=== PATIENT | female | born 1950 | race Caucasian/White ===

== ENCOUNTER → 2018-05-30 | Outpatient (CLI) | payer BC, MEDICARE, OTHER ==
[~2018-05-30] MED LIST: ABILIFY 5 MG TAB5 M1 PO; ADVAIR HFA 1112 UNIT INH; AMPHETAMINE SAL10 MG PO; ATORVASTATIN CA40 MG PO; BUSPIRONE HCL10 MG PO; CLARINEX5 MG PO; CYMBALTA60 MG PO; ELMIRON 100 MG100 M1 PO; METFORMIN HCL500 MG PO; NEXIUM40 MG PO; NORCO 5-325 TA1 EACH PO; QUINU10 PD PO; RHINOCORT AQUA8.6 GM NS; SINGULAIR 10 MG10 M1 PO; WELLBUTRIN SR150 MG PO
== END ==
LOC: M.RAD 09:17
DX: Z12.31 Encounter for screening mammogram for malignant neoplasm of breast (principal)

== ENCOUNTER → 2018-08-23 | Outpatient (CLI) | payer BC, MEDICARE, OTHER | LOC: M.MRI 07:09 → M.RAD 08-31 13:00 → M.MRI 08-31 14:30 | DX: M19.012 Primary osteoarthritis, left shoulder (principal); M75.102 Unspecified rotator cuff tear or rupture of left shoulder, not specified as traumatic ==

== ENCOUNTER 2018-10-06 17:03 | Emergency (ER) | payer BC, MEDICARE, OTHER ==
[~2018-10-06] VITALS: Ht 162.6 cm; Wt 77.7 kg
[~2018-10-06 17:03] MED LIST changes: +ABILIFY MYCITE5 MG PO; +ACCUNEB SO1.25 MG/1 INH; +BREO ELLIPTA 21 EACH INH; +IRON325 PO; +LIPITOR80 MG PO; +PRESERVISION T1 EACH PO; +QUINAPRIL 20 MG20 MG PO; +RHINOCORT ALL8.43 ML INH; +UNICOMPLEX M TA1 TA1 PO; +VITAMIN D2000 UNIT PO; +WELLBUTRIN XL300 MG PO
[2018-10-06] MEDS ORDERED: METFORMIN HCL500 MG PO (17:44)
[2018-10-06] MEDS ORDERED: NORCO 5-325 TA1 EACH PO (17:44)
[2018-10-06] MEDS ORDERED: OXYCODON-ACETA1 EAC1 PO (18:39)
[2018-10-06 19:21] VITALS: BP 184/88
== END 2018-10-06 19:18 | disposition home or self-care (01) ==
LOC: M.ERS 17:03
DX: G89.18 Other acute postprocedural pain (principal); Z98.890 Other specified postprocedural states; I10 Essential (primary) hypertension; J45.909 Unspecified asthma, uncomplicated; E78.00 Pure hypercholesterolemia, unspecified; F32.9 Major depressive disorder, single episode, unspecified; Z90.710 Acquired absence of both cervix and uterus; Z91.012 Allergy to eggs

== ENCOUNTER 2019-05-07 12:07 | Inpatient (IN) | payer MEDICARE, BC, OTHER ==
[~2019-05-07] VITALS: Ht 149.9 cm; Wt 75.6 kg
[~2019-05-07 12:07] MED LIST changes: +CYMBALTA20 MG PO; +OXYCODON-ACETA1 EAC1 PO
[2019-05-07 12:10] VITALS: BP 144/65
[2019-05-07] MEDS ORDERED: MAGNESIUM BISG500 GM PO (12:20)
[2019-05-07] MEDS ORDERED: PROAIR HFA8.5 GM INH (12:20)
[2019-05-07] MEDS ORDERED: BREO ELLIPTA 21 EACH INH (12:21)
[2019-05-07] MEDS ORDERED: CRESTOR40 MG PO (12:22)
[2019-05-07] MEDS ORDERED: DITROPAN XL10 M1 PO (12:23)
[2019-05-07] MEDS ORDERED: CIPRO250 M2 PO (12:23)
[2019-05-07] MEDS ORDERED: VIIBRYD20 MG PO (12:23)
[2019-05-07] MEDS ORDERED: VITAMIN D1000 UNIT PO (12:23)
[2019-05-07 12:44] LABS: ABSOLUTE BASOPHILS 0.1 thou/uL (0.0-0.2); ABSOLUTE LYMPHOCYTES 2.1 thou/uL (0.8-5.3); ABSOLUTE MONOCYTES 0.5 thou/uL (0.0-1.2); BASOPHILS 1.1 %; EOSINOPHILS 0.7 %; HEMATOCRIT 31.8 % (37.0-47.0); HEMOGLOBIN 10.7 gm/dL (12.0-15.0); LYMPHOCYTES 31.4 %; MCH 31.9 pg (26.0-34.0); MCHC 33.8 g/dL (28.0-37.0); MCV 94.3 fL (80.0-100.0); MONOCYTES 7.7 %; MPV 7.4 fl. (7.2-11.1); NUCLEATED RBCS 0 /100WBC; PLATELET COUNT* 360 thou/uL (150-400); POLYS 59.1 %; RBC 3.37 mil/uL (4.20-5.00); RDW-CV 13.9 % (10.5-14.5); WBC 6.8 thou/uL (4.0-11.0)
[2019-05-07 12:53] LABS: CALCIUM 9.1 mg/dL (8.5-10.1); CREATININE 2.1 mg/dL (0.6-1.3); POTASSIUM 4.2 mmol/L (3.5-5.1)
[2019-05-07 12:54] LABS: PROTIME 9.8 Seconds (9.20-11.50)
[2019-05-07 13:03] LABS: ALBUMIN 3.5 g/dL (3.4-5.0); TOTAL BILIRUBIN 0.3 mg/dL (<0.1-1.0); TOTAL PROTEIN 7.2 g/dL (6.4-8.2)
--- NOTE | 2019-05-07 16:13 | NUR ---
DR. ENNIS CONSULTING WITH THE PATIENT AT THIS TIME.
[2019-05-07 17:17] VITALS: BP 114/59
--- NOTE | 2019-05-07 17:31 | EKG ---
[place] [address] ELECTROCARDIOGRAM REPORT Name: CYNTHIA SAMAYOA Room: [address] ADM IN .R.#: [id number] Admission: 05/07/19 Attend Phys: Jabier Chávez, Discharge: Date of : 52 Report #: [id number] THIS REPORT FOR: //name// [facility] ED Test Date: 2019-05-07 Test Time: 12:15:09 Pat Name: CYNTHIA SAMAYOA Department: Room: [facility] Gender: F Stable Cleaner: : 1950 Requested By: Jb Johns Order Number: [id number] MD: Tristan Ford Measurements Intervals [place] Rate: 104 P: 72 VA: 148 QRS: 3 QRSD: 86 T: 64 QT: 349 QTc: 459 Interpretive Statements Sinus tachycardia Baseline wander in lead(s) I,III,aVL Compared to ECG 05/13/2016 10:14:28 Sinus rhythm no longer present Electronically Signed On 05-07-2019 17:31:01 [employer] by Tristan Ford [email or web address] <ELECTRONICALLY SIGNED> By: Tristan Ford MD, FACC 05/07/19 1731 1215 1215 Tristan Ford MD, FAC /EPI
[2019-05-07 17:57] VITALS: BP 116/62
[2019-05-07 20:01] VITALS: BP 113/60
[2019-05-07 23:34] VITALS: BP 107/56
--- NOTE | 2019-05-08 00:24 | NUR ---
RECEIVED REPORT AND ASSUMED CARE AT 1900. VSS. CARDIAC MONITORING IN PLACE. ASSESSMENT COMPLETED CHARTED. PT UP AD FADUMO IN ROOM, ON RA. WEARS CPAP NOC, BROGHT FROM HOME. BED LOCKED IN LOWEST POSITION, CALL LIGHT WITHIN REACH. ORIENTATED TO ROOM, CALL LIGHT. DISCUSSED PLAN OF CARE, STRESS TEST 05/08/19. VERBALIZED UNDERSTANDING.
[2019-05-08 04:00] VITALS: BP 108/61
[2019-05-08 05:48] LABS: HEMATOCRIT 30.7 % (37.0-47.0); HEMOGLOBIN 10.1 gm/dL (12.0-15.0); MCH 31.6 pg (26.0-34.0); MCV 95.7 fL (80.0-100.0); MPV 7.5 fl. (7.2-11.1); RBC 3.21 mil/uL (4.20-5.00); WBC 7.1 thou/uL (4.0-11.0)
[2019-05-08 06:06] LABS: ANION GAP 6 mmol/L (7-16); BUN 30 mg/dL (7-18); CALCIUM 9.6 mg/dL (8.5-10.1); CHLORIDE 108 mmol/L (98-107); CO2 28 mmol/L (21-32); CREATININE 1.8 mg/dL (0.6-1.3); GLUCOSE 100 mg/dL (70-99); MAGNESIUM 2.3 mg/dL (1.8-2.4); POTASSIUM 4.6 mmol/L (3.5-5.1); SODIUM 142 mmol/L (136-145); TROPONIN-I LEVEL <0.06 ng/mL (<0.06)
--- NOTE | 2019-05-08 07:25 | NUR ---
CHANGE OF SHIFT, BEDSIDE REPORT GIVEN PATIENT SEEN AT BEDSIDE, IN BED ASLEEP ASSUMED PATIENT CARE PATIENT NPO FOR TESTING
[2019-05-08 08:00] VITALS: BP 128/68
--- NOTE | 2019-05-08 08:20 | CON ---
[address] [address] CONSULTATION Name: CYNTHIA SAMAYOA Room: [address] IN M.R.#: [id number] Admission: 05/07/19 Attend Phys: Jabier Chávez, Discharge: Date of : 52 Report #: [id number] THIS REPORT FOR: //name// CC: Pasquale Chávez INDICATION: Chest pain. HISTORY OF PRESENT ILLNESS: The patient is a 68-year-old white female with coronary artery disease based on calcium score of 350. She presents with midsternal chest discomfort radiating to the back of the shoulder and the left forearm. She denies diaphoresis or nausea with this. She also has some jaw numbness, which she states has been present throughout the day. She presented this morning for further evaluation. Troponin is less than 0.06 x 2. EKG shows sinus rhythm without significant ST or T-wave abnormality. CARDIAC RISK FACTORS: Include hypertension, dyslipidemia, and family history of premature atherosclerotic coronary artery disease. PAST MEDICAL HISTORY: 1. Coronary artery disease. 2. Hypertension. 3. Hyperlipidemia. 4. Fibromyalgia. 5. Depression. 6. Asthma. 7. Interstitial cystitis. PAST SURGICAL HISTORY: 1. Tonsillectomy. 2. Hysterectomy. 3. Bladder repair. 4. Hernia repair. 5. Ankle surgery. 6. Multiple bladder repairs. ALLERGIES: Egg whites. HOME MEDICATIONS: Quinapril 20 mg bedtime, Cymbalta 40 mg daily, metformin 500 mg 2 tablets b.i.d., ProAir inhaler 2 puffs q.6-4 hours p.r.n., magnesium 500 mg p.o. daily, Breo Ellipta 200/25 mcg inhalation daily, rosuvastatin 40 mg daily, vitamin D3 2000 units daily, Viibryd 20 mg daily, Ditropan XL 10 mg daily, Cipro one tablet b.i.d., Clarinex 1 tablet daily p.r.n., Singulair 10 mg at bedtime, Nexium 40 mg daily, Elmiron 100 mg p.o. b.i.d., iron sulfate 325 mg daily, Abilify 5 mg bedtime, Wellbutrin-XL 300 mg bedtime, buspirone 10 mg 3 [place] [address] CONSULTATION Name: YAO,JEAN MAGNO Room: [address]#: [id number] Admission: 05/07/19 Attend Phys: Jabier Chávez, Discharge: Date of : 52 Report #: [id number] p.o. b.i.d. and PreserVision eye tablet b.i.d. SOCIAL HISTORY: She does not smoke or drink alcohol. She is . PHYSICAL EXAMINATION: VITAL SIGNS: Blood pressure 112/52, pulse 95 and regular. GENERAL: This is a pleasant elderly female in no distress. Mood and affect appropriate. HEENT: The patient is wearing glasses. Extraocular muscles intact. Mucous membranes are moist. NECK: Shows no jugular venous distention. There are no carotid bruits. CHEST: Reveals clear lung gupta without wheezes or rales. CARDIOVASCULAR: Reveals a regular rhythm, normal S1 and S2. I do not appreciate gallop or murmur. ABDOMEN: Reveals normal bowel sounds. The abdomen is soft and nontender. EXTREMITIES: Shows no edema. Peripheral pulses 2+ and easily palpable. SKIN: Warm and dry. LABORATORY DATA: Troponin less than 0.06 x 2. EKG shows sinus rhythm without acute ST- or T-wave abnormality. IMPRESSION AND RECOMMENDATIONS: 1. Chest pain. We will obtain stress testing to rule out occult angina. 2. Coronary artery disease, presently stable. Continue home medications, would consider daily aspirin. 3. Hypertension. Blood pressure appears adequately controlled on home regimen. 4. Hyperlipidemia, recently switched to Crestor 40 mg daily. I would continue at this dose. <ELECTRONICALLY SIGNED> By: Tristan Ford MD, FACC 05/08/19 0820 1636 [id number] Ford MD, FACC /nt
[2019-05-08 11:40] LABS: % SATURATION 18 % (20-39); IRON 60 ug/dL (50-175)
[2019-05-08 11:58] VITALS: BP 136/77
[2019-05-08 12:46] LABS: URINE BILIRUBIN NEGATIVE (Negative); URINE BLOOD TRACE (Negative); URINE CLARITY CLEAR; URINE COLOR YELLOW; URINE GLUCOSE-RANDOM NEGATIVE (Negative); URINE KETONES NEGATIVE (Negative); URINE LEUKOCYTES-REFLEX NEGATIVE (Negative); URINE NITRITE-REFLEX NEGATIVE (Negative); URINE PROTEIN NEGATIVE (Negative); URINE SPECIFIC GRAVITY <= 1.005 (1.005-1.030); URINE UROBILINOGEN 0.2 E.U./dl (0.2-1.0)
--- NOTE | 2019-05-08 15:37 | NUR ---
Pt is A&O. Resides at home with . Independent and active. No DME. No hx of HH or SNF. Goal is home at vt. DPOA completed, copy on Pt's chart. Following.
[2019-05-08 16:00] VITALS: BP 102/57
--- NOTE | 2019-05-08 17:01 | CARDNUC ---
[place] [address] CARDIAC NUCLEAR IMAGING REPORT Name: CYNTHIA SAMAYOA Room: [address] IN [facility]#: [id number] Admission: 05/07/19 Attend Phys: Jabier Marcos Discharge: Date of : 52 Date of Service: 05/08/19 1701 Report #: [id number] THIS REPORT FOR: //name// APPROVED REPORT Study performed: 05/07/2019 16:29:00 Indication: Chest pain Patient Location: In-Patient Room #: 209 Stress Tech: Shawna Feliz Stress Nurse: Delores Cadena RN Ht: 4 ft 11 in Wt: 151 lbs BSA: 1.64 m2 BMI: 30.49 Medical History Medical History: elevated calcium score, cad, hyperlipidemia, hypertension Medications: asa-81, atorvastatin, lisinopril Allergies: eggs Cardiac Risk Factors: age, hyperlipidemia, hypertension, family hx Previous Cardiac Procedures: none Exercise History: Indeterminate Resting Data Rest SPECT myocardial perfusion imaging was performed in supine position 30 minutes following the intravenous injection of 12.0 mCi of Tc-99m Sestamibi. Time of rest injection: 10:00 The images were gated to evaluate regional wall motion and calculate left ventricular ejection fraction. Administration Route: IV Administration Site: Right AC Pharmacologic Stress Pharmacologic stress test was performed by injecting Regadenoson 0.4 mg IV push over 10-15 seconds immediately followed by the intravenous injection of 33.6 mCi of Tc-99m Sestamibi. Time of stress injection: 11:35 Administration Route: IV Administration Site: Right AC Heart Rate at time of stress injection: 108 bpm. Gated Stress SPECT was performed 90 minutes [place] [address] CARDIAC NUCLEAR IMAGING REPORT Name: CYNTHIA SAMAYOA Room: [address] IN ..#: [id number] Admission: 05/07/19 Attend Phys: Jabier Marcos Discharge: Date of : 52 Date of Service: 05/08/19 1701 Report #: [id number] injection. The images were gated to evaluate regional wall motion and calculate left ventricular ejection fraction. Prone imaging was performed. Stress Test Details Stress Test: Pharmacologic stress testing performed using 0.4 mg of regadenoson per 5 mL given IV over 10 seconds. Reason for pharmacologic stress test: physical limitation. Reversal agent Aminophyline 60 mg, given intravenously for npo status. HR Max Heart Rate (APMHR): 153 bpm Resting HR: 84 bpm Target HR (85% APMHR): 130 bpm Max HR Achieved: 108 bpm % of APMHR: 70 Recovery HR: 95 bpm BP Resting BP: 111/67 mmHg Max BP: 134/75 mmHg Recovery BP: 124/74 mmHg ECG Resting ECG: Sinus Rhythm Stress ECG: Sinus Tachycardia ST Change: None Arrhythmia: None Recovery ECG: Sinus Rhythm Recovery ST Change: None Recovery Arrhythmia: None Clinical Reason for Termination: Completed protocol Exercise duration: 0 min sec Exercise capacity: 1 METs The patient tolerated Lexiscan infusion without significant cardiac symptoms. Nurse Comments pt unable to walk on treadmill d/t generalized weakness Stress ECG Conclusion The baseline 12-lead EKG shows sinus rhythm without significant ST segment abnormality. EKGs obtained during and post Lexiscan infusion showed sinus rhythm and sinus tachycardia with no significant ST or T wave changes when compared to baseline. There wereno [place] [address] CARDIAC NUCLEAR IMAGING REPORT Name: YAOCYNTHIA MAGNO Room: [address] IN [facility]#: [id number] Admission: 05/07/19 Attend Phys: Jabier Marcos Discharge: Date of : 52 Date of Service: 05/08/19 1701 Report #: [id number] arrhythmias. Study Quality Study: Good Artifact: No artifact Study Data At rest, the left ventricular ejection fraction was 74%.. Post stress, the left ventricular ejection was 74%.. TID = 0.83. Perfusion Normal left ventricular perfusion. Wall Motion Normal left ventricular wall motion. Nuclear Conclusion ECG Findings: negative for ischemia Clinical Findings: negative for ischemia Nuclear Findings: negative for ischemia Exercise Capacity: not assessed Left Ventricular Function: normal Risk Study: low Myocardial perfusion images showed no defect to suggest infarct or ischemia. Left ventricular systolic function appears normal on gated studies. This is a low risk study. <Conclusion> The baseline 12-lead EKG shows sinus rhythm without significant ST segment abnormality. EKGs obtained during and post Lexiscan infusion showed sinus rhythm and sinus tachycardia with no significant ST or T wave changes when compared to baseline. There wereno stress-induced arrhythmias. <ELECTRONICALLY SIGNED> By: Tristan Ford MD, FACC 05/08/191700 00 00 Tristan Ford MD, FACC /INF
[2019-05-08 20:00] VITALS: BP 111/59
[2019-05-09] VITALS: BP 86/47
[2019-05-09 04:00] VITALS: BP 106/56
--- NOTE | 2019-05-09 06:26 | NUR ---
PATIENT SLEPT MOST OF THE NIGHT. IV REMAINS SALINE LOCKED. PATIENT WAS GIVEN TYLENOL ONCE FOR PAIN. PATIENT IS POSSIBLY GOING HOME TODAY. WILL CONTINUE TO MONITOR.
--- NOTE | 2019-05-09 07:25 | NUR ---
CHANGE OF SHIFT, BEDSIDE REPORT GIVEN PATIENT SEEN AT BEDSIDE, IN BED RESTING ASSUMED PATIENT CARE
[2019-05-09 08:00] VITALS: BP 139/57
[2019-05-09 11:06] LABS: ALBUMIN 3.3 g/dL (3.4-5.0); CALCIUM 9.6 mg/dL (8.5-10.1); CREATININE 1.8 mg/dL (0.6-1.3); PHOSPHORUS* 4.5 mg/dL (2.5-4.9); POTASSIUM 4.2 mmol/L (3.5-5.1)
[2019-05-09 12:13] VITALS: BP 100/58
[2019-05-09] MEDS ORDERED: ASPIR 8181 M1 PO (12:32)
[2019-05-09] MEDS ORDERED: SUPER THERAVIT1 EACH PO (12:41)
[2019-05-09] MEDS ORDERED: ACETAMINOPHEN650 M5 PO (12:48)
[2019-05-09 12:53] VITALS: BP 100/58
--- NOTE | 2019-05-09 13:32 | NUR ---
PATIENT DISCHARGED TO HOME ALL DC INSTRUCTIONS GIVEN, ACKNOWLEDGED, SIGNED COPIES GIVEN IV AND HEART MONITOR REMOVED PERSONAL BELONGINGS RETURNED PATIENTS HOME MEDICATION RETURNED PATIENT ASSISTED OUT VIA WC IN GOOD CONDITION TO WAITING CAR
== END 2019-05-09 13:16 | disposition home or self-care (01) | DRG 392 ==
LOC: M.ERS 12:07 → M.TBA-ER 13:25 → M.2W 13:25
PROVIDERS: Emergency Medicine; ADMIT Family Medicine
DX: K21.9 Gastro-esophageal reflux disease without esophagitis (principal); N17.9 Acute kidney failure, unspecified; F32.9 Major depressive disorder, single episode, unspecified; J45.909 Unspecified asthma, uncomplicated; E78.00 Pure hypercholesterolemia, unspecified; I25.10 Atherosclerotic heart disease of native coronary artery without angina pectoris; E78.5 Hyperlipidemia, unspecified; E66.01 Morbid (severe) obesity due to excess calories; D64.9 Anemia, unspecified; I12.9 Hypertensive chronic kidney disease with stage 1 through stage 4 chronic kidney disease, or unspecified chronic kidney disease; N18.9 Chronic kidney disease, unspecified; Z90.710 Acquired absence of both cervix and uterus; Z91.012 Allergy to eggs; Z82.49 Family history of ischemic heart disease and other diseases of the circulatory system; Z68.33 Body mass index [BMI] 33.0-33.9, adult

== ENCOUNTER → 2019-06-03 | Outpatient (CLI) | payer BC, MEDICARE, OTHER ==
[~2019-06-03] MED LIST changes: +ACETAMINOPHEN650 M5 PO; +ASPIR 8181 M1 PO; +CIPRO250 M2 PO; +CRESTOR40 MG PO; +DITROPAN XL10 M1 PO; +MAGNESIUM BISG500 GM PO; +PROAIR HFA8.5 GM INH; +SUPER THERAVIT1 EACH PO; +VIIBRYD20 MG PO; +VITAMIN D1000 UNIT PO
== END ==
LOC: M.RAD 08:59
DX: Z12.31 Encounter for screening mammogram for malignant neoplasm of breast (principal)

== ENCOUNTER → 2020-06-24 | Outpatient (CLI) | payer BC | LOC: M.RAD 08:00 | PROVIDERS: ATTEND Family Medicine | DX: Z12.31 Encounter for screening mammogram for malignant neoplasm of breast (principal); N64.89 Other specified disorders of breast ==

== ENCOUNTER → 2021-06-28 | Outpatient (CLI) | payer BC, MEDICARE | LOC: M.RAD 09:56 | PROVIDERS: ATTEND Family Medicine | DX: Z12.31 Encounter for screening mammogram for malignant neoplasm of breast (principal) ==